=== PATIENT | female | born 2000 | race Caucasian/White ===

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

== ENCOUNTER 2023-07-15 17:24 | Emergency (ER) | payer OTHER ==
[~2023-07-15] VITALS: Ht 157.4 cm; Wt 111.1 kg
[~2023-07-15 17:24] MED LIST changes: +CEPACOL SORE T1 EAC1 MM; +CEPHALEXIN500 M1 PO; +MOTRIN IB200 M1 PO
[2023-07-15] MEDS ORDERED: TAMIFLU 75MG CA75 MG PO (17:52)
== END 2023-07-15 18:12 | disposition home or self-care (01) ==
LOC: ED 17:24
DX: J11.1 Influenza due to unidentified influenza virus with other respiratory manifestations (principal); Z79.2 Long term (current) use of antibiotics; Z96.22 Myringotomy tube(s) status

== ENCOUNTER 2023-10-29 18:07 | Emergency (ER) | payer OTHER ==
[~2023-10-29] VITALS: Ht 157.4 cm; Wt 111.1 kg
[~2023-10-29 18:07] MED LIST changes: +TAMIFLU 75MG CA75 MG PO
[2023-10-29] MEDS ORDERED: ACETAMINOPHEN 325 MG TAB PO ONE (18:30)
== END 2023-10-29 19:16 | disposition home or self-care (01) ==
LOC: ED 18:07
DX: O26.891 Other specified pregnancy related conditions, first trimester (principal); S86.911A Strain of unspecified muscle(s) and tendon(s) at lower leg level, right leg, initial encounter; Z98.890 Other specified postprocedural states; Z3A.08 8 weeks gestation of pregnancy; W01.0XXA Fall on same level from slipping, tripping and stumbling without subsequent striking against object, initial encounter; Y93.89 Activity, other specified; Y92.009 Unspecified place in unspecified non-institutional (private) residence as the place of occurrence of the external cause; Y99.8 Other external cause status

== ENCOUNTER 2024-02-24 15:49 | Emergency (ER) | payer OTHER ==
[~2024-02-24] VITALS: Ht 157.5 cm; Wt 106.1 kg
== END 2024-02-24 18:18 ==
LOC: ED 15:49
DX: J02.9 Acute pharyngitis, unspecified (principal); Z20.822 Contact with and (suspected) exposure to COVID-19; B97.4 Respiratory syncytial virus as the cause of diseases classified elsewhere; R05.9 Cough, unspecified; Z98.890 Other specified postprocedural states

== ENCOUNTER 2024-10-18 20:41 | Emergency (ER) | payer OTHER ==
[2024-10-18] MEDS ORDERED: SODIUM CHLORIDE 0.9% 1,000 ML IV ONE (21:30)
== END 2024-10-18 22:09 | disposition left against medical advice (07) ==
LOC: ED 20:41
DX: Z04.1 Encounter for examination and observation following transport accident (principal)